=== PATIENT | male | born 1980 | race Caucasian/White ===

== ENCOUNTER → 2020-11-16 | Outpatient (CLI) | payer BC, OTHER ==
[~2020-11-16] MED LIST: IBU800 MG PO; KEFLEX500 MG PO; NORCO 7.5-3251 EACH PO
== END ==
LOC: RAD 08:37
PROC: BW1J1ZZ Fluoroscopy of Upper Extremity using Low Osmolar Contrast (ICD-10-PCS; principal; 2020-11-16)
PROC: BP39YZZ Magnetic Resonance Imaging (MRI) of Left Shoulder using Other Contrast (ICD-10-PCS; 2020-11-16)
DX: M77.8 Other enthesopathies, not elsewhere classified (principal); M75.52 Bursitis of left shoulder
CPT/HCPCS: 73040; 73222; A9577; Q9962